=== PATIENT | female | born 1960 | race American Indian/Alaskan Native ===

== ENCOUNTER 2018-03-23 10:16 | Outpatient (CLI) | payer MEDICAID | END 2018-03-23 10:17 | disposition home or self-care (01) | LOC: C.PAT 10:16 | DX: Z86.010 Personal history of colon polyps (principal) ==

== ENCOUNTER 2018-03-30 08:18 | Day surgery (SDC) | payer MEDICAID ==
[2018-03-23 10:35] VITALS: BMI 32.3
[2018-03-30 08:59] VITALS: RESP 20; TEMP 98.6
[2018-03-30] MEDS ORDERED: Midazolam 2 MG/2 ML VIAL ONE (11:10)
[2018-03-30] MEDS ORDERED: Propofol 10 mg/ml Inj (20 ML) ONE (11:10)
[2018-03-30 11:20] VITALS: PULSE 79; O2SAT 100
[2018-03-30 12:20] VITALS: BP 123/76
[2018-03-30] MEDS ORDERED: Lactated Ringer's 500 ML IV SCH (12:30)
== END 2018-03-30 12:36 | disposition home or self-care (01) ==
LOC: C.ENDO 08:18
PROVIDERS: ATTEND Internal Medicine Gastroenterology
DX: Z12.11 Encounter for screening for malignant neoplasm of colon (principal); K64.1 Second degree hemorrhoids; Z87.19 Personal history of other diseases of the digestive system
CPT/HCPCS: 82948; G0105; J2250; J2704; J7120